=== PATIENT | female | born 1965 | race Caucasian/White ===

== ENCOUNTER 2016-10-12 12:45 | Outpatient (CLI) | payer BC, OTHER | END 2016-10-12 23:59 | disposition home or self-care (01) | LOC: CT 12:45 | PROVIDERS: ATTEND Family Medicine | DX: M41.85 Other forms of scoliosis, thoracolumbar region (principal); R51 Headache | CPT/HCPCS: 70450; 72072; 72110 ==

== ENCOUNTER 2017-01-25 09:30 | Outpatient (CLI) | payer BC, OTHER ==
[2017-01-25 11:37] LABS: BASOPHILS # (AUTO) 0.1 K/uL (0.0-8.0); BASOPHILS % (AUTO) 1.3 % (0.0-2.0); EOSINOPHILS # (AUTO) 0.2 K/uL (0.0-0.7); EOSINOPHILS % (AUTO) 4.8 % (0.0-7.0); HEMATOCRIT 39.5 % (31.2-41.9); HEMOGLOBIN 13.6 g/dL (10.9-14.3); LYMPHOCYTES % (AUTO) 22.3 % (20.5-51.5); MEAN CORPUSCULAR HEMOGLOBIN 31.9 uug (24.7-32.8); MEAN CORPUSCULAR HGB CONC 34 g/dL (32.3-35.6); MONOCYTES # (AUTO) 0.4 K/uL (2.0-10.0); NEUTROPHILS # (AUTO) 2.9 K/uL (1.8-8.9); NEUTROPHILS % (AUTO) 63.6 % (38.5-71.5); PLATELET COUNT (AUTO) 280 K/uL (179-408); RED BLOOD CELL COUNT(AUTO) 4.24 MIL/uL (3.63-4.92); WHITE BLOOD COUNT (AUTO) 4.6 K/uL (3.8-11.8)
[2017-01-25 11:45] LABS: BILIRUBIN,TOTAL 0.5 mg/dL (0.2-1.0); CREATININE 0.8 mg/dL (0.6-1.3); POTASSIUM 3.8 mmol/L (3.5-5.1); TOTAL PROTEIN, SERUM 7.9 g/dL (6.4-8.2)
[2017-01-26 07:09] LABS: IMMUNOGLOBULIN M, SERUM 168 mg/dL (26-217)
[2017-01-26 08:10] LABS: *EBV AB VCA IGG >600.0 U/mL (0.0-17.9); *EBV AB VCA IGM <36.0 U/mL (0.0-35.9); THYROID PEROXIDASE (TPO) AB 11 IU/mL (0-34)
[2017-01-27 10:07] LABS: *THYROGLOBULIN <1.0 IU/mL (0.0-0.9)
[2017-01-28 21:11] LABS: *IGG SUBCLASS 1 742 mg/dL (248-810); *IGG SUBCLASS 2 472 mg/dL (130-555); *IGG SUBCLASS 3 47 mg/dL (15-102); *IGG SUBCLASS 4 26 mg/dL (2-96); *IMMUNOGLOBULIN G, SERUM 1306 mg/dL (700-1600)
== END 2017-01-25 23:59 | disposition home or self-care (01) ==
LOC: LAB 09:30
PROVIDERS: ATTEND Family Medicine
DX: R22.1 Localized swelling, mass and lump, neck (principal); M41.85 Other forms of scoliosis, thoracolumbar region
CPT/HCPCS: 36415; 71020; 82784; 84443; 85025; 93880